=== PATIENT | female | born 1985 | race Caucasian/White ===

== ENCOUNTER 2020-09-02 15:58 | Emergency (ER) | payer SELFPAY ==
[~2020-09-02] VITALS: Ht 160 cm; Wt 79.4 kg
[2020-09-02 16:08] VITALS: BP 125/85
[2020-09-02] MEDS ORDERED: POLY10SO OP (16:34)
[2020-09-02] MEDS ORDERED: CEPH500C16 PO (16:34)
[2020-09-02 16:44] VITALS: BP 125/85
== END 2020-09-02 16:44 | disposition home or self-care (01) ==
LOC: MED 15:58
DX: H10.89 Other conjunctivitis (principal); L03.213 Periorbital cellulitis; Z79.899 Other long term (current) drug therapy
CPT/HCPCS: 99283

== ENCOUNTER 2022-06-04 16:27 | Emergency (ER) | payer SELFPAY ==
[~2022-06-04] VITALS: Ht 160 cm; Wt 77.1 kg
[~2022-06-04 16:27] MED LIST: CEPH500C16 PO; POLY10SO OP
[2022-06-04 16:37] VITALS: BP 112/83
--- NOTE | 2022-06-04 16:40 | NUR ---
PT AMBULATED TO LOBBY
--- NOTE | 2022-06-04 16:42 | NUR ---
36/F WALKED IN C/O LEFT WRIST PAIN X1 DAY S/P COUSIN PRESSED ON IT BY ACCIDENT. PT DESCRIBES PAIN SHARP AND CONSTANT 10/10. WRIST DOES NOT APPEAR SWOLLEN AT THIS TIME. AAO4, AMBULATORY, VITALS STABLE, ROM INTACT, NO DEFORMITY NOTED TO THE WRIST. PMH: DENIES
[2022-06-04] MEDS ORDERED: ACETAMINOPHEN EXTRA STRENGTH 500 MG TAB PO ONE (17:35)
[2022-06-04] MEDS ORDERED: IBUPROFEN 600 MG TAB PO ONE (17:35)
[2022-06-04] MEDS ORDERED: IBUP-2213 PO (18:03)
== END 2022-06-04 18:10 | disposition home or self-care (01) ==
LOC: MED 16:27
DX: S63.602A Unspecified sprain of left thumb, initial encounter (principal); X58.XXXA Exposure to other specified factors, initial encounter; Y93.89 Activity, other specified; Y92.89 Other specified places as the place of occurrence of the external cause; Y99.8 Other external cause status
CPT/HCPCS: 73110; 99283